=== PATIENT | female | born 1985 | race American Indian/Alaskan Native ===

== ENCOUNTER 2017-02-19 18:58 | Emergency (ER) | payer OTHER ==
[2017-02-19] MEDS ORDERED: TYLENOL ONE (19:42)
[2017-02-19 19:58] LABS: Eosinophils % (Auto) 1.2 % (0.0-4.3); Hematocrit 44.1 % (30.3-42.9); Hemoglobin 14.4 gm/dl (10.1-14.3); Mean Corpuscular HGB Conc 33 % (30-34); Mean Corpuscular Hemoglobin 32 pg (28-32); Mean Corpuscular Volume 97 fl (79-97); Platelet Count 364 K/mm3 (140-440); Red Blood Count 4.53 M/mm3 (3.65-5.03); Red Cell Distribution Width 13.5 % (13.2-15.2); White Blood Count 12.8 K/mm3 (4.5-11.0)
[2017-02-19 20:08] LABS: Alanine Aminotransferase 5 units/L (7-56); Albumin 4.8 g/dL (3.9-5); Albumin/Globulin Ratio 1.5 %; Alkaline Phosphatase 57 units/L (35-129); Anion Gap 18 mmol/L; BUN/Creatinine Ratio 17; Blood Urea Nitrogen 12 mg/dL (7-17); Calcium 9.8 mg/dL (8.4-10.2); Carbon Dioxide 25 mmol/L (22-30); Chloride 98.5 mmol/L (98-107); Glucose 117 mg/dL (65-100); Potassium 3.8 mmol/L (3.6-5.0); Sodium 138 mmol/L (137-145); Total Protein 8.1 g/dL (6.3-8.2)
[2017-02-19] MEDS ORDERED: TYLENOL PO ONE (21:07)
[2017-02-19 21:12] LABS: Bacteria,Urine 1+ /HPF (Negative); Bilirubin,Urine NEG (Negative); Blood,Urine SM (Negative); Ketones,Urine 80 mg/dL (Negative); Leukocyte Esterase,Urine NEG (Negative); Mucus,Urine 2+ /HPF; Nitrite,Urine NEG (Negative); Urobilinogen,Urine < 2.0 mg/dL (<2.0)
[2017-02-20] MEDS ORDERED: NORCO 5/325 PO ONE (00:14)
[2017-02-20] MEDS ORDERED: MOTRIN PO ONE (00:15)
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
[2017-02-20] MEDS ORDERED: VALIUM PO ONE ×2 (00:55→00:59)
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
[2017-02-20 02:38] LABS: Urine Drugs of Abuse Note Disclamer
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
[2017-02-20 07:29] VITALS: BP 114/72
== END 2017-02-20 04:20 | disposition home or self-care (01) ==
LOC: ED 18:58
DX: S63.602A Unspecified sprain of left thumb, initial encounter (principal); V49.49XA Driver injured in collision with other motor vehicles in traffic accident, initial encounter; X58.XXXA Exposure to other specified factors, initial encounter; Y93.9 Activity, unspecified; Y92.9 Unspecified place or not applicable; Y99.9 Unspecified external cause status
CPT/HCPCS: 36415; 70450; 71020; 72125; 72131; 80053; 80307; 81001; 84703; 85025

== ENCOUNTER 2017-10-12 16:08 | Emergency (ER) | payer OTHER ==
[2017-10-12 17:12] LABS: Bilirubin,Urine NEG (Negative); Blood,Urine NEG (Negative); Color,Urine Yellow (Yellow); HCG Qualitative,Urine Negative (Negative); Mucus,Urine FEW /HPF; Protein,Urine <15 mg/dL mg/dL (Negative); Urobilinogen,Urine < 2.0 mg/dL (<2.0)
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
[2017-10-12] MEDS ORDERED: ZITHROMAX PO ONE (19:13)
[2017-10-12] MEDS ORDERED: ROCEPHIN IM ONE (19:13)
[2017-10-12] MEDS ORDERED: XYLOCAINE 1% MPF 5 mL INFILTRATI ONE (19:13)
[2017-10-12] MEDS ORDERED: NORCO 10/325 PO ONE (19:25)
[2017-10-12 19:52] VITALS: BP 112/78
== END 2017-10-12 19:53 | disposition home or self-care (01) ==
LOC: ED 16:08
DX: N94.819 Vulvodynia, unspecified (principal); I10 Essential (primary) hypertension; F12.10 Cannabis abuse, uncomplicated; Z87.891 Personal history of nicotine dependence; Z87.42 Personal history of other diseases of the female genital tract; Z88.0 Allergy status to penicillin
CPT/HCPCS: 81001; 81025; 87210; 87591; 99284

== ENCOUNTER 2018-03-08 13:50 | Outpatient (CLI) | payer OTHER ==
--- NOTE | 2018-03-08 15:46 | Mammography Report ---
Bilateral diagnostic mammogram followed by bilateral global sonogram: History: Multiple bilateral palpable lumps. Findings: Bilateral dense breast parenchyma. Several lobulated densities are identified however no distinct mass is seen. Masses could be obscured by dense breast parenchyma. No microcalcification. Normal axilla. Sonogram of right breast: At 11:00 position 3 cm from nipple there is simple cyst with a septum identified measuring 0.7 x 0.49 cm x 0.6 cm. At 10:00 position 5 cm from nipple there is a complex cyst identified measuring 0.8 x 0.6 x 0.5 cm. There is a single simple cyst noted at 10:00 position 6 cm from nipple measuring 0.4 x 0.4 cm. Simple cyst measuring 0.9 x 0.4 cm noted is noted at 8:00 o'clock position 4 cm from nipple. Left breast sonogram: At the left breast 12:00 o'clock 3 cm from nipple there is a complex cyst identified measuring 1.03 x 0.79 x 0.73 cm. At 3:00 position 7 cm centimeter from nipple there is another complex cyst identified measuring 0.5 x 0.37 by 0.62 cm. There is simple cyst identified at 11:00 position 4 cm from nipple measuring 0.8 x 0.3 cm and a second simple cyst at 4:00 position 3 cm from nipple measuring 0.5 x 0.35 cm B. Impression: Multiple complex probably benign and benign cysts as detailed above. Recommend 6 month followup with mammogram and sonogram. BI-RADS CATEGORY: 3 = Probably benign ACR BI-RADS MAMMOGRAPHIC CODES: 0 = Needs additional imaging evaluation; 1 = Negative; 2 = Benign; 3 = Probably benign; 4 = Suspicious; 5 = Malignant; 6 = Known biopsy-proven malignancy COMMENT: 1. Dense breast tissue, i.e., adenosis, fibrocystic changes, etc., may obscure an underlying neoplasm. 2. Approximately 10% of cancers are not detected with mammography. 3. A negative mammography report should not delay biopsy if a clinically suspicious mass is present. COMMENT: Patient follow-up letters are generated in [employer].
== END 2018-03-08 13:51 | disposition home or self-care (01) ==
LOC: SPVWC 13:50
PROVIDERS: ATTEND Obstetrics & Gynecology
DX: N60.02 Solitary cyst of left breast (principal); N60.01 Solitary cyst of right breast; I10 Essential (primary) hypertension; Z87.891 Personal history of nicotine dependence
CPT/HCPCS: 77066

== ENCOUNTER 2020-05-12 13:58 | Emergency (ER) | payer OTHER | END 2020-05-12 19:00 | disposition left against medical advice (07) | LOC: ED 13:58 | DX: R07.89 Other chest pain (principal); Z53.21 Procedure and treatment not carried out due to patient leaving prior to being seen by health care provider ==

== ENCOUNTER 2020-08-17 19:50 | Emergency (ER) | payer OTHER | END 2020-08-17 22:15 | disposition left against medical advice (07) | LOC: ED 19:50 | DX: R10.9 Unspecified abdominal pain (principal); Z53.21 Procedure and treatment not carried out due to patient leaving prior to being seen by health care provider ==

== ENCOUNTER 2020-09-12 13:22 | Emergency (ER) | payer OTHER ==
[2020-09-12 14:09] VITALS: BP 133/88
--- NOTE | 2020-09-12 14:55 | Event Note ---
ED Screening Note Date of service: 09/12/20 Time: 14:47 ED Screening Note: Patient presents to the ER with complaints of abdominal pain status post myomectomy September 02. Patient reports she feels like she is having complications from her surgery. She she reports abdominal pain, abdominal swelling, redness around her wound and intermittent discharge from the wound and vaginal bleeding. She states that she was having these issues at the time she was being discharged but he told that she will be all right but the symptoms has been persistent. She denies any fever at home. She denies any UTI symptoms. She denies any cough. This initial assessment/diagnostic orders/clinical plan/treatment(s) is/are subject to change based on patients health status, clinical progression and re- assessment by fellow clinical providers in the ED. Further treatment and workup at subsequent clinical providers discretion. Patient/guardian urged not to elope from the ED as their condition may be serious if not clinically assessed and managed. Initial orders include: Abdominal pain order set.
== END 2020-09-12 19:00 | disposition left against medical advice (07) ==
LOC: ED 13:22
DX: R10.9 Unspecified abdominal pain (principal); Z53.21 Procedure and treatment not carried out due to patient leaving prior to being seen by health care provider